=== PATIENT | female | born 1945 | race Caucasian/White ===

== ENCOUNTER 2018-05-02 10:28 | Emergency (ER) | payer OTHER ==
[~2018-05-02] VITALS: Ht 157.5 cm; Wt 50.3 kg
[2018-05-02 11:24] LABS: BASOPHILS % (AUTO) 0.5 % (0-1); EOSINOPHILS # (AUTO) 0.1 X10'3 (0-0.9); EOSINOPHILS % (AUTO) 2.7 % (0-6); HEMATOCRIT 36.7 % (35.0-45.0); HEMOGLOBIN 12.3 g/dl (12.0-16.0); LYMPHOCYTES # (AUTO) 1.2 X10'3 (1.1-4.8); LYMPHOCYTES % (AUTO) 28.5 % (21-51); MEAN CORPUSCULAR HEMOGLOBIN 30.5 PG (27.0-31.0); MEAN CORPUSCULAR HGB CONC 33.5 % (33.0-36.5); MEAN PLATELET VOLUME 8.5 FL (7.4-10.4); MONOCYTES # (AUTO) 0.6 X10'3 (0-0.9); MONOCYTES % (AUTO) 13.9 % (2-12); NEUTROPHILS # (AUTO) 2.2 X10'3 (1.8-7.7); NEUTROPHILS % (AUTO) 54.4 % (42-75); PLATELET COUNT 206 X10'3 (140-440); RED BLOOD COUNT 4.03 X10'6 (4.20-5.60); RED CELL DISTRIBUTION WIDTH 13.4 % (11.5-14.5); WHITE BLOOD COUNT 4.1 X10'3 (4.5-11.0)
[2018-05-02 11:37] LABS: PARTIAL THROMBOPLASTIN TIME 31 SECONDS (22-32); PROTHROMBIN TIME 10.6 SECONDS (9.0-12.0)
[2018-05-02 11:40] LABS: ALANINE AMINOTRANSFERASE 32 U/L (12-78); ALBUMIN 3.6 G/DL (3.4-5.0); ALKALINE PHOSPHATASE 147 IU/L (46-116); ANION GAP 8 (8-16); ASPARTATE AMINO TRANSFERASE 24 U/L (10-37); BILIRUBIN,TOTAL 0.4 MG/DL (0.1-1.0); BLOOD UREA NITROGEN 14 MG/DL (7-18); BUN/CREATININE RATIO 15.9 (6.6-38.0); CALCIUM 8.5 MG/DL (8.5-10.1); CHLORIDE 103 MMOL/L (99-107); CREATININE 0.88 MG/DL (0.40-0.90); GLUCOSE 105 MG/DL (70-104); POTASSIUM 4.2 MMOL/L (3.5-5.1); SODIUM 139 MMOL/L (135-145); TOTAL CARBON DIOXIDE 27.7 MMOL/L (24-32); TOTAL PROTEIN 7.3 G/DL (6.4-8.2); eGFR 64 ML/MIN
[2018-05-02 12:01] VITALS: BP 154/58
== END 2018-05-02 12:32 | disposition home or self-care (01) ==
LOC: ER 10:29 → EDBD 10:29 → ER 12:32
DX: R06.02 Shortness of breath (principal); R53.83 Other fatigue; Z60.2 Problems related to living alone; Z59.0 Homelessness; Z88.2 Allergy status to sulfonamides; Z91.041 Radiographic dye allergy status; Z91.018 Allergy to other foods
CPT/HCPCS: 36415; 71045; 80053; 84484; 85025; 85610; 85730; 93005; 99284

== ENCOUNTER 2018-05-06 21:48 | Inpatient (IN) | payer MEDICARE, OTHER ==
[~2018-05-06] VITALS: Ht 157.5 cm; Wt 48.8 kg
[2018-05-06 22:44] LABS: BASOPHILS % (AUTO) 0.9 % (0-1); EOSINOPHILS # (AUTO) 0.1 X10'3 (0-0.9); EOSINOPHILS % (AUTO) 3.2 % (0-6); HEMATOCRIT 37.3 % (35.0-45.0); HEMOGLOBIN 12.4 g/dl (12.0-16.0); LYMPHOCYTES # (AUTO) 1.2 X10'3 (1.1-4.8); LYMPHOCYTES % (AUTO) 32.4 % (21-51); MEAN CORPUSCULAR HEMOGLOBIN 30.2 PG (27.0-31.0); MEAN CORPUSCULAR HGB CONC 33.2 % (33.0-36.5); MEAN CORPUSCULAR VOLUME 91.1 FL (78-98); MEAN PLATELET VOLUME 8.6 FL (7.4-10.4); MONOCYTES # (AUTO) 0.5 X10'3 (0-0.9); MONOCYTES % (AUTO) 13.1 % (2-12); NEUTROPHILS # (AUTO) 1.8 X10'3 (1.8-7.7); NEUTROPHILS % (AUTO) 50.4 % (42-75); PLATELET COUNT 212 X10'3 (140-440); RED BLOOD COUNT 4.09 X10'6 (4.20-5.60); RED CELL DISTRIBUTION WIDTH 13.1 % (11.5-14.5); WHITE BLOOD COUNT 3.6 X10'3 (4.5-11.0)
[2018-05-06 22:53] LABS: ALANINE AMINOTRANSFERASE 33 U/L (12-78); ALBUMIN 3.7 G/DL (3.4-5.0); ALKALINE PHOSPHATASE 104 IU/L (46-116); ANION GAP 9 (8-16); ASPARTATE AMINO TRANSFERASE 44 U/L (10-37); BILIRUBIN,TOTAL 0.5 MG/DL (0.1-1.0); BLOOD UREA NITROGEN 20 MG/DL (7-18); BUN/CREATININE RATIO 19.6 (6.6-38.0); CALCIUM 8.5 MG/DL (8.5-10.1); CHLORIDE 104 MMOL/L (99-107); CREATININE 1.02 MG/DL (0.40-0.90); GLUCOSE 97 MG/DL (70-104); SODIUM 141 MMOL/L (135-145); TOTAL PROTEIN 7.3 G/DL (6.4-8.2); eGFR 54 ML/MIN
[2018-05-06 22:54] LABS: INR 1.1 INR; PARTIAL THROMBOPLASTIN TIME 31 SECONDS (22-32); PROTHROMBIN TIME 10.7 SECONDS (9.0-12.0)
[2018-05-07] MEDS ORDERED: normal saline 1000ml 1,000 ML IV SCH (01:09)
[2018-05-07] MEDS ORDERED: acetaminophen 650mg rectal suppository RC PRN (01:10)
[2018-05-07] MEDS ORDERED: diphenhydrAMINE 25mg capsule PO PRN (01:10)
[2018-05-07] MEDS ORDERED: mag hydrox/Alum hydrox/simeth 30ml oral suspension PO PRN (01:10)
[2018-05-07] MEDS ORDERED: bisacodyl 10mg suppository rectal RC PRN (01:10)
[2018-05-07] MEDS ORDERED: diphenhydrAMINE 50 mg/ml inj IV PRN (01:10)
[2018-05-07] MEDS ORDERED: morphine 4 MG/ML inj SYRINge IV PRN ×2 (01:10)
[2018-05-07] MEDS ORDERED: metoclopramide 5 mg/ml inj IV PRN (01:10)
[2018-05-07] MEDS ORDERED: magnesium hydroxide 30ml (MOM) UD suspension PO PRN (01:10)
[2018-05-07] MEDS ORDERED: ondansetron/PF 4mg/2ml inj IV PRN (01:10)
[2018-05-07] MEDS ORDERED: acetaminophen 325mg tablet PO PRN ×2 (01:10)
[2018-05-07 01:48] LABS: D-DIMER 0.37 MG/L FEU (0-0.50)
[2018-05-07 02:39] LABS: HEMOGLOBIN A1C 6.1 % (4.5-6.2)
[2018-05-07 02:52] LABS: MAGNESIUM 1.9 MG/DL (1.5-2.4)
[2018-05-07 03:25] VITALS: BP 121/65
[2018-05-07 06:00] VITALS: BP 138/72
--- NOTE | 2018-05-07 07:00 | NUR ---
Problems reprioritized. Patient report given, questions answered & plan of care reviewed with Dianne BYRD.
--- NOTE | 2018-05-07 07:06 | NUR ---
Patient in room PCU 3028. I have received report from Dudley BYRD and had the opportunity to ask questions and assume patient care.
[2018-05-07] MEDS: aspirin 81mg tab.chew PO SCH (08:00)
[2018-05-07] MEDS: enoxaparin 40mg/0.4ml syringe SQ SCH ×2 (08:00→20:00)
[2018-05-07] MEDS: lisinopril 5mg tablet PO SCH (09:11)
[2018-05-07] MEDS: metoprolol tartrate 12.5mg (1/2 tablet) PO SCH ×2 (09:14→20:09)
[2018-05-07] MEDS: docusate sod 100mg capsule PO SCH ×2 (09:15→20:00)
[2018-05-07] MEDS: nitroGLYCERIN 0.1mg/hour patch TD SCH (09:18)
[2018-05-07] MEDS ORDERED: pneumococcal 23-VAL P-sac vacc 25 mcg/0.5ml vial IMVAC ONE (10:00)
[2018-05-07 11:00] VITALS: BP 123/57
[2018-05-07] MEDS ORDERED: iohexol 300mg/ml 100ml inj. ONE (12:17)
[2018-05-07 15:00] VITALS: BP 120/33
--- NOTE | 2018-05-07 18:27 | NUR ---
Patient in room PCU 3028. I have received report from Dianne BYRD and had the opportunity to ask questions and assume patient care. Pt is laying in bed and is still working on dinner. Currently getting vitals taken. Per report has underlying psych issues. Per pt, she has bipolar disorder. Per report she is homeless and is not on any home meds.
[2018-05-07 19:00] VITALS: BP 111/42
--- NOTE | 2018-05-07 20:47 | NUR ---
Per report pt has underlying psych issues. Bipolar per the pt. On assessment pt has flight of ideas, and appears to be in a manic state. She will continue to talk about things that are irrelevant to her stay here, and share things that she feels are important, but to me sound like delusions. Will continue to monitor pt throughout the evening.
[2018-05-07] MEDS ORDERED: temazepam 15mg capsule PO PRN (21:00)
[2018-05-07] MEDS ORDERED: famotidine 20mg tablet PO SCH (21:00)
--- NOTE | 2018-05-07 21:16 | NUR ---
Per telephone sterilizer pt HR dropped down to 45 then came back up to 60s. Administered 12.5 mg metoprolol this evening with 8pm meds. Pt asymptomatic.
--- NOTE | 2018-05-07 21:44 | NUR ---
Problems reprioritized. Patient report given, questions answered & plan of care reviewed with Caroline BYRD.
--- NOTE | 2018-05-07 21:50 | NUR ---
Patient in room PCU 3028. I have received report from Maryjo BYRD and had the opportunity to ask questions and assume patient care. I agree with all assessments that were done.
[2018-05-07 21:53] LABS: CLARITY,URINE SLIGHTLY CLOUDY (Clear); COLOR,URINE YELLOW (Yellow); GLUCOSE, URINE NEGATIVE (Neg); KETONES,URINE NEGATIVE (Neg); LEUKOCYTE ESTERASE ,URINE TRACE (Neg); NITRITES, URINE NEGATIVE (Neg); OCCULT BLOOD,URINE TRACE-INTACT (Neg); PH,URINE 6.5 (4.8-8.0); PROTEIN,URINE NEGATIVE (Neg); UROBILINOGEN,URINE 0.2 E.U/dL (0.2-1.0)
[2018-05-07 21:56] LABS: URINE AMPHETAMINE SCREEN NEGATIVE (Neg); URINE BARBITUATE SCREEN NEGATIVE (Neg); URINE BENZODIAZEPINES SCREEN NEGATIVE (Neg); URINE CANNABINOID SCREEN NEGATIVE (Neg); URINE COCAINE SCREEN NEGATIVE (Neg); URINE METHADONE SCREEN NEGATIVE (Neg); URINE OPIATE SCREEN NEGATIVE (Neg); URINE PHENCYCLIDINE SCREEN NEGATIVE (Neg)
[2018-05-07 22:00] VITALS: BP 100/47
[2018-05-07 22:03] LABS: UA COLLECTION TYPE CLN CATCH MIDSTREAM
[2018-05-07 22:18] LABS: BACTERIA,URINE 4+ /HPF (Neg); SQUAMOUS EPITHELIAL CELL,UR FEW /LPF (FEW); WBC,URINE TNTC /HPF (0-4)
[2018-05-07 22:19] LABS: RBC,URINE 0-2 /HPF (0-2)
[2018-05-08 02:00] VITALS: BP 114/62
[2018-05-08 06:00] VITALS: BP 138/52
[2018-05-08 06:17] LABS: BASOPHILS % (AUTO) 0.3 % (0-1); EOSINOPHILS # (AUTO) 0.1 X10'3 (0-0.9); EOSINOPHILS % (AUTO) 2.2 % (0-6); HEMATOCRIT 38.4 % (35.0-45.0); LYMPHOCYTES # (AUTO) 0.7 X10'3 (1.1-4.8); LYMPHOCYTES % (AUTO) 15.6 % (21-51); MEAN CORPUSCULAR HEMOGLOBIN 30.9 PG (27.0-31.0); MEAN CORPUSCULAR HGB CONC 33.8 % (33.0-36.5); MEAN CORPUSCULAR VOLUME 91.4 FL (78-98); MEAN PLATELET VOLUME 8.8 FL (7.4-10.4); MONOCYTES # (AUTO) 0.3 X10'3 (0-0.9); NEUTROPHILS # (AUTO) 3.7 X10'3 (1.8-7.7); NEUTROPHILS % (AUTO) 74.9 % (42-75); PLATELET COUNT 209 X10'3 (140-440); RED CELL DISTRIBUTION WIDTH 13.3 % (11.5-14.5); WHITE BLOOD COUNT 4.8 X10'3 (4.5-11.0)
--- NOTE | 2018-05-08 06:30 | NUR ---
Problems reprioritized. Patient report given, questions answered & plan of care reviewed with Micheal BYRD.
--- NOTE | 2018-05-08 06:42 | NUR ---
Patient in room PCU 3028. I have received report from Kristie BYRD and had the opportunity to ask questions and assume patient care.
[2018-05-08] MEDS: enoxaparin 40mg/0.4ml syringe SQ SCH (08:00)
[2018-05-08] MEDS ORDERED: atorvastatin 10mg tablet PO SCH (08:00)
[2018-05-08] MEDS: aspirin 81mg tab.chew PO SCH (08:00)
[2018-05-08] MEDS: docusate sod 100mg capsule PO SCH (08:00)
[2018-05-08 08:05] VITALS: BP_SYST 138
[2018-05-08] MEDS: metoprolol tartrate 12.5mg (1/2 tablet) PO SCH (08:05)
[2018-05-08] MEDS: nitroGLYCERIN 0.1mg/hour patch TD SCH (08:07)
[2018-05-08] MEDS: lisinopril 5mg tablet PO SCH (08:08)
[2018-05-08 09:26] LABS: ALBUMIN 3.1 G/DL (3.4-5.0); ANION GAP 10 (8-16); BILIRUBIN,TOTAL 0.5 MG/DL (0.1-1.0); BLOOD UREA NITROGEN 16 MG/DL (7-18); CALCIUM 8.2 MG/DL (8.5-10.1); CHLORIDE 104 MMOL/L (99-107); CREATININE 0.89 MG/DL (0.40-0.90); GLUCOSE 93 MG/DL (70-104); POTASSIUM 4.6 MMOL/L (3.5-5.1); SODIUM 138 MMOL/L (135-145); TOTAL CARBON DIOXIDE 23.6 MMOL/L (24-32); TOTAL PROTEIN 6.5 G/DL (6.4-8.2); eGFR 63 ML/MIN
[2018-05-08 09:27] LABS: ALANINE AMINOTRANSFERASE 28 U/L (12-78); ALBUMIN/GLOBULIN RATIO 0.9 (1.1-1.5); ALKALINE PHOSPHATASE 90 IU/L (46-116); ASPARTATE AMINO TRANSFERASE 29 U/L (10-37); CHOL/HDL RATIO 2.3 (0.00-4.99); CHOLESTEROL 147 MG/DL (0-200); HDL CHOLESTEROL 64 MG/DL (35-60); LDL CHOLESTEROL 72 MG/DL (50-100); TRIGLYCERIDES 48 MG/DL (20-135)
[2018-05-08] MEDS ORDERED: ASPI-1265 PO (10:03)
--- NOTE | 2018-05-08 12:23 | NUR ---
Patient was reported by [facility] to not be in her room at 1130. Patient had no IV's in and tele was taken off. Security was notified of patient missing.
== END 2018-05-08 12:00 | disposition left against medical advice (07) | DRG 682 ==
LOC: ER 21:49 → ED HOLD 05-07 01:09 → EDBEDREQ 05-07 02:31 → PCU 3S 05-07 03:05
PROVIDERS: ADMIT Family Medicine; ATTEND Internal Medicine
DX: N17.9 Acute kidney failure, unspecified (principal); I21.A1 Myocardial infarction type 2; E86.0 Dehydration; I10 Essential (primary) hypertension; F31.9 Bipolar disorder, unspecified; Z60.2 Problems related to living alone; R55 Syncope and collapse; R94.31 Abnormal electrocardiogram [ECG] [EKG]; R91.8 Other nonspecific abnormal finding of lung field; Z53.21 Procedure and treatment not carried out due to patient leaving prior to being seen by health care provider; Z88.2 Allergy status to sulfonamides; Z88.8 Allergy status to other drugs, medicaments and biological substances; Z91.018 Allergy to other foods; Z59.0 Homelessness
CPT/HCPCS: 36415; 70450; 71045; 71260; 80053; 80061; 80305; 81001; 83036; 83735; 83880; 84100; 84443; 84484; 85025; 85379; 85610; 85730; 87070; 87077; 87088; 87186; 93005; 93306; 93880; 99285; G0378; J1650; J7030; Q9967

== ENCOUNTER 2018-06-13 10:51 | Emergency (ER) | payer MEDICARE, OTHER ==
[~2018-06-13] VITALS: Ht 157.5 cm; Wt 45.5 kg
[~2018-06-13 10:51] MED LIST: ASPI-1265 PO
[2018-06-13 11:27] VITALS: BP 140/73
== END 2018-06-13 11:47 | disposition home or self-care (01) ==
LOC: ER 10:52 → EEVIPCON 10:52 → ER 11:47
DX: S01.511A Laceration without foreign body of lip, initial encounter (principal); W22.09XA Striking against other stationary object, initial encounter; Y93.89 Activity, other specified; Y92.019 Unspecified place in single-family (private) house as the place of occurrence of the external cause
CPT/HCPCS: 99283